=== PATIENT | female | born 1935 | race Caucasian/White ===

== ENCOUNTER 2019-04-22 12:34 | Inpatient (IN) | payer MEDICARE ==
[~2019-04-22] VITALS: Ht 167.6 cm; Wt 63.6 kg
[~2019-04-22 12:34] MED LIST: ASPI81CH PO; CALCIUM WITH V1 EACH PO; CARV3.125 PO; CARV6.25 PO; FLUZONE HI IM; FOLGARD TABLET1 EACH PO; FOSI10 PO; HYDACE5 PO; LEVO750 PO; LISI5 PO; LORA1 PO; LOSHYD PO; MELO7.5 PO; METR500 PO; NAPR550 PO; PROBIOTIC1 EAC1 PO; RXHYDACE PO; RXNAPNA550 PO; TRAM50 PO; Vibramycin100 MG PO; [UNRECOGNIZED DRUG - OTHER] TOP
[2019-04-22 13:09] LABS: BASOPHILS ABSOLUTE AUTO 0.07 K/mm3 (0.00-0.23); BASOPHILS PERCENT AUTO 1 % (0-2); EOSINOPHILS PERCENT AUTO 1 % (0-6); Hematocrit 25.7 % (33.0-51.0); IMMATURE GRAN ABSOLUTE AUTO 0.14 K/mm3 (0.00-0.10); IMMATURE GRAN PERCENT AUTO 1 % (0-1); LYMPHOCYTES ABSOLUTE AUTO 1.29 K/mm3 (0.84-5.20); LYMPHOCYTES PERCENT AUTO 10 % (21-46); MONOCYTES ABSOLUTE AUTO 1.08 K/mm3 (0.16-1.47); MONOCYTES PERCENT AUTO 8 % (4-13); Mean Corpuscular HGB 31.7 pg (26.0-34.0); Mean Corpuscular HGB Conc 31.1 g/dL (31.5-36.5); Mean Corpuscular Volume 102 fL (80-100); Mean Platelet Volume 10.1 fL (9.1-12.4); NEUTROPHILS ABSOLUTE AUTO 10.82 K/mm3 (1.96-9.15); NEUTROPHILS PERCENT AUTO 80 % (41-73); Platelet Count 300 K/mm3 (150-400); RDW Coefficient Variation 13.6 % (11.7-14.2); RDW Standard Deviation 49.1 fL (35.1-46.3); Red Blood Cell Count 2.52 M/mm3 (3.80-5.20)
[2019-04-22] MEDS ORDERED: LISI20 PO (13:10)
[2019-04-22] MEDS ORDERED: ATOR10 PO (13:10)
[2019-04-22] MEDS ORDERED: Tab-A-Vite1 EACH PO (13:10)
[2019-04-22] MEDS ORDERED: ELIQUIS2.5 MG PO (13:11)
[2019-04-22] MEDS ORDERED: METO50ER PO (13:11)
[2019-04-22] MEDS ORDERED: ALEN70 PO (13:11)
[2019-04-22] MEDS ORDERED: Dilt-Xr120 MG PO (13:12)
[2019-04-22] MEDS ORDERED: VITAMIN D310 MC2 PO (13:13)
[2019-04-22 13:20] LABS: International Normalized Ratio 1.14; Prothrombin Time Results 11.9 Sec (9.7-11.5)
[2019-04-22 13:28] LABS: Albumin, Blood 2.9 g/dL (3.4-5.0); Bilirubin, Total 0.5 mg/dL (0.1-1.0); Bun/Creatinine Ratio 41.6 (12.0-20.0); Calcium, Blood 8.5 mg/dL (8.5-10.1); Creatinine, Blood 1.73 mg/dL (0.40-1.00); Globulin, Blood 2.8 g/dL (2.2-4.0); Total Protein, Blood 5.7 g/dL (6.4-8.2)
[2019-04-22] MEDS ORDERED: Naproxen375 MG PO (14:46)
[2019-04-22] MEDS ORDERED: DONEPEZIL HCL5 M2 PO (14:48)
--- NOTE | 2019-04-22 16:53 | NUR ---
1535 PT ARRIVED FROM ER A&OX4 IN A-FIB W/ RVR RATE 110'S-120'S. BP'S STARTED TO DECREASE DOWN SYSTOLICALLY IN THE 70'S. 1ST UNIT OF PRBC'S WAS INFUSING, RATE INCREASED TO ASSIST WITH BP. 1630 BP'S IMPROVING, 2ND UNIT PRBC INIATED. ENDO TEAM AT BEDSIDE FOR SCOPE.
[2019-04-22 18:55] LABS: Base Excess Venous -1.2 mmol/L; Bicarbonate Venous 22.3 mmol/L (24.0-30.0); Hematocrit 32.7 % (33.0-51.0); Hemoglobin 10.5 g/dL (11.5-16.0); PCO2 Venous 45.5 mmHg (38-42); PO2 Venous 21.9 mmHg (38-42); pH Blood Venous 7.34 (7.34-7.37)
--- NOTE | 2019-04-22 19:15 | NUR ---
ASSUMED CARE OF PT AT 1915. Ax0, VITAL WNL, DENIES PAIN. PROTONIX AND NS RUNNING. H&H 10.5/32.7, LACTIC 1.6. [facility] WNL, NOTIFIED, WILL COLLECT H&H AT 2300. MONITOR BP.
--- NOTE | 2019-04-22 19:47 | NUR ---
SHIFT SUMMARY AFTER COMPLETION OF ENDOSCOPY, PT'S BP STARTED TO DROP AGAIN. DR MARX ORDERED AN ADDITIONAL LR BOLUS AND REQUESTED TO HAVE PRINT DESIGNER CONSULT ON PT. PT COMPLETED BETWEEN ER AND SHIFT END 2 UNITS PRBC AND 4L IVF. PT'S BP WAS RESPONSIVE TO FLUIDS. LABS WERE ORDERED FOR FOLLOW UP AND SPARKER AND PATCHER WOULD PROVIDE MD WITH RESULTS ONCE POSTED. PT INITIALLY ARRIVED TO UNIT IN A-FIB RVR WITH RATES 120'S, AFTER THE BLOOD AND IVF PT'S RATE IMPROVED TO THE 80'S. PROVIDED DETAILED REPORT TO ONCOMING RN.
[2019-04-22 20:09] LABS: Source, Urine Catheter
[2019-04-22 20:12] LABS: Bilirubin, Urine Neg (Neg); Blood, Urine 5+ (Neg); Glucose Qualitative, Urine Neg (Neg); Ketones, Urine 1+ (Neg); Leukocyte Esterase, Urine 3+ (Neg); Nitrite, Urine Neg (Neg); Protein, Urine Neg (Neg); Urobilinogen, Urine NORM (Normal)
[2019-04-22 20:18] LABS: Appearance, Urine Hazy (Clear); Color, Urine Pale Yellow (P-Yellow)
[2019-04-22 20:19] LABS: White Blood Cells, Urine 25-50 /hpf (0-5)
[2019-04-22 20:20] LABS: Amorphous Light (0-Heavy); Bacteria Mod /hpf; Hyaline Casts 0-2 /lpf (0-2); Squamous Epithelial Cells Mod /hpf (Few)
[2019-04-22 23:11] LABS: Hematocrit 30.3 % (33.0-51.0)
[2019-04-23 05:20] LABS: BASOPHILS ABSOLUTE AUTO 0.06 K/mm3 (0.00-0.23); BASOPHILS PERCENT AUTO 1 % (0-2); EOSINOPHILS PERCENT AUTO 2 % (0-6); IMMATURE GRAN ABSOLUTE AUTO 0.11 K/mm3 (0.00-0.10); IMMATURE GRAN PERCENT AUTO 1 % (0-1); LYMPHOCYTES ABSOLUTE AUTO 1.99 K/mm3 (0.84-5.20); LYMPHOCYTES PERCENT AUTO 19 % (21-46); MONOCYTES ABSOLUTE AUTO 1.25 K/mm3 (0.16-1.47); MONOCYTES PERCENT AUTO 12 % (4-13); Mean Corpuscular HGB 31.3 pg (26.0-34.0); Mean Corpuscular HGB Conc 33.3 g/dL (31.5-36.5); Mean Platelet Volume 9.7 fL (9.1-12.4); NEUTROPHILS ABSOLUTE AUTO 6.98 K/mm3 (1.96-9.15); NEUTROPHILS PERCENT AUTO 66 % (41-73); Platelet Count 209 K/mm3 (150-400); RDW Coefficient Variation 15.6 % (11.7-14.2); RDW Standard Deviation 52.5 fL (35.1-46.3); Red Blood Cell Count 2.88 M/mm3 (3.80-5.20); White Blood Cell Count 10.59 K/mm3 (4.00-11.30)
[2019-04-23 05:21] LABS: Mean Corpuscular Volume 94 fL (80-100)
[2019-04-23 05:42] LABS: Albumin, Blood 2.3 g/dL (3.4-5.0); Bilirubin, Total 0.9 mg/dL (0.1-1.0); Bun/Creatinine Ratio 40.7 (12.0-20.0); Calcium, Blood 7.7 mg/dL (8.5-10.1); Creatinine, Blood 1.35 mg/dL (0.40-1.00); Globulin, Blood 2.2 g/dL (2.2-4.0); Potassium, Blood 4.4 mmol/L (3.5-5.5); Total Protein, Blood 4.5 g/dL (6.4-8.2)
--- NOTE | 2019-04-23 06:06 | NUR ---
PT ALERT AND ORIENTATED, BLOOD PRESSURE WNL FOR WHOLE SHIFT. HEART RATE IN 50S-70S, DENIES PAIN. NO BLOODY BOWEL MOVEMENTS. ABLE TO VOID PER BEDPAN, ON ROOM AIR. ABLE TO HELP TURN AND REPOSTION. LABS: HGB-9.0 HCT-27.0 DRAWN AT 0500. NO ACUTE EVNTS OVERNIGHT WILL CONTINUE TO MONITOR
--- NOTE | 2019-04-23 07:30 | NUR ---
ASSUMED CARE PT ALERT AND ORIENTED TO LOCATION THIS AM. VSS REMAIN STABLE. PT DENIES ANY PAIN. NO N/V. PT UP WITH STAND BY ASSIST TO BEDSIDE COMMODE THIS AM TO VOID. DENIES DIZZINESS WITH TRANSFER. REMAINS ON PROTONIX GTT. CALL LIGHT IN REACH, PT REMINDED TO CALL PRIOR TO GETTING OOB FOR SAFETY, BED IN LOW POSITION.
[2019-04-23 09:32] LABS: Hematocrit 28.1 % (33.0-51.0); Hemoglobin 9.3 g/dL (11.5-16.0)
--- NOTE | 2019-04-23 11:46 | NUR ---
DR. MARX IN TO SEE PT REQUESTED PT REMAIN ICU STATUS FOR 1 MORE DAY FOR CLOSER OBSERVATION.
--- NOTE | 2019-04-23 17:09 | NUR ---
SHIFT SUMMARY PT. REMAINS ALERT T/O DAY, SLEEPING ON AND OFF. PT UP TO BEDSIDE COMMODE TO VOID, NO STOOL THIS SHIFT. PT. DENIES ANY N/V OR ABD PAIN T/O SHIFT. DENIES DIZZINESS WITH TRANSFERS. PT. AFEBRILE. REMAINS ON PROTONIX GTT. PLANS FOR STATUS CHANGE TOMORROW. VSS, REPORT TO ONCOMING RN
--- NOTE | 2019-04-23 19:15 | NUR ---
ASSUMED CARE OF PT AT 1915, VITAL WNL, DENIES PAIN, ON FULL LIQUID DIET, NO PULSE OX MONITOR, SPOT CHECK SAT AT 95%. H&H DUE AT 2099.
[2019-04-23 21:19] LABS: Hematocrit 30.6 % (33.0-51.0); Hemoglobin 10.2 g/dL (11.5-16.0)
--- NOTE | 2019-04-24 00:13 | NUR ---
PT RESTARTED ON HOME MEDICATIONS TO CONTROL HEART RATE.
--- NOTE | 2019-04-24 00:37 | NUR ---
PT TRANSFERED TO RM 308. PTIS ALERT AND ORIENTATED, DENIES PAIN OR SOB, HEART IN 120S, TOPROL XL 50MG GIVEN PRIOR TO TRANSFER. H&H AT 2100 TRENDING UP. AM LABS PENDING. NO ACUTE EVENTS BEFORE OR DURING TRANSFER.
--- NOTE | 2019-04-24 01:25 | NUR ---
ICU 09 TRANSFER. REPORT TAKEN FROM AMY AMAYA. FOUR PERSON TRANSFER FROM [facility] TO BED. ON ROOM AIR AND TELEMETRY. PCU CHARGE KRISTEN REPORTS A-FIB 120. IV PROTONIX INFUSING AT 10 mL/HR FROM ICU. DENIES PAIN, SOB, AND N/V. PATIENT ORIENTED TO ROOM AND CALL LIGHT SYSTEM. [place]. REPORTS SHE WOULD LIKE TO GET SOME SLEEP. CALL LIGHT IN REACH. WILL CONTINUE TO MONITOR.
--- NOTE | 2019-04-24 04:39 | NUR ---
SHIFT SUMMARY PATIENT HAD NO ACUTE CHANGES OBSERVED. AXO X 3 AND ONE ASSIST. PIV REMAINS INTACT. IV PROTONIX INFUSING AT 10 mL/HR. SHELTER CASE MANAGER REPORTED A-FIB 120 ON TRANSFER FROM ICU AND NOW A-FIB 107. DENIES PAIN, SOB, AND N/V. BP WNL/AFEBRILE. ROOM AIR. COOPERATIVE WITH CARE. CALL LIGHT IN REACH. BED IN LOWEST POSITION. WILL CONTINUE TO MONITOR UNTIL DAY SHIFT NURSE ASSUMES CARE.
[2019-04-24 04:41] LABS: BASOPHILS ABSOLUTE AUTO 0.07 K/mm3 (0.00-0.23); BASOPHILS PERCENT AUTO 1 % (0-2); EOSINOPHILS ABSOLUTE AUTO 0.37 K/mm3 (0.00-0.68); EOSINOPHILS PERCENT AUTO 4 % (0-6); Hematocrit 31.2 % (33.0-51.0); Hemoglobin 10.1 g/dL (11.5-16.0); IMMATURE GRAN ABSOLUTE AUTO 0.08 K/mm3 (0.00-0.10); IMMATURE GRAN PERCENT AUTO 1 % (0-1); LYMPHOCYTES ABSOLUTE AUTO 2.16 K/mm3 (0.84-5.20); LYMPHOCYTES PERCENT AUTO 23 % (21-46); MONOCYTES ABSOLUTE AUTO 1.06 K/mm3 (0.16-1.47); MONOCYTES PERCENT AUTO 11 % (4-13); Mean Corpuscular HGB 31.1 pg (26.0-34.0); Mean Corpuscular HGB Conc 32.4 g/dL (31.5-36.5); Mean Corpuscular Volume 96 fL (80-100); Mean Platelet Volume 9.8 fL (9.1-12.4); NEUTROPHILS ABSOLUTE AUTO 5.73 K/mm3 (1.96-9.15); NEUTROPHILS PERCENT AUTO 61 % (41-73); Platelet Count 239 K/mm3 (150-400); RDW Coefficient Variation 15.9 % (11.7-14.2); RDW Standard Deviation 54.9 fL (35.1-46.3); Red Blood Cell Count 3.25 M/mm3 (3.80-5.20); White Blood Cell Count 9.47 K/mm3 (4.00-11.30)
--- NOTE | 2019-04-24 07:54 | NUR ---
telemetry notification PCU MANAGER OF BROADCAST CONTENT CONTACTED LN TO ADVISE OF CONVERSION TO SINUS RHYTHM AT APPROX 73 BPM.
--- NOTE | 2019-04-24 10:33 | NUR ---
04/24/19 1033 Gail Byers CORRECTION TO PROCEDURE FOR PURPOSES OF VERIFICATION.
--- NOTE | 2019-04-24 17:44 | NUR ---
Initial spiritual care note: Mrs. Norwood is a pleasant lady who tells me she feels better and is hoping to go home soon. She lives alone but has "great neighbors." She denied fears/concerns. She allowed me to pray for her. Care Director services will remain available.
--- NOTE | 2019-04-24 18:34 | NUR ---
SHIFT SUMMARY PATIENT A/O. PATIENT ON PROTONIX DRIP THROUGHOUT ENTIRETY OF SHIFT. PATIENT MAKES NEEDS KNOWN. AMBULATES TO BATHROOM WITH FWW WITH ASSISTANCE. CALLS APPROPRIATELY. VITAL SIGNS APPEAR STABLE THROUGHOUT SHIFT AND TREND OF H/H IN DESIRED DIRECTION. PROVIDER INCREASE DIET TO REGULAR DIET AND PATIENT ABLE TO TOLERATE FOODS WITHOUT ISSUE. LN TO CONTINUE TO MONITOR.
--- NOTE | 2019-04-24 21:20 | NUR ---
HELD PO TOPROL XL 50 MG PER PER PARAMETERS. HOLD IF SBP <100. BP 94/68.
--- NOTE | 2019-04-24 22:01 | NUR ---
PATIENT RESTING READING. TECH REPORTS A-FIB 77. IV PROTONIX INFUSING AT 10 mL/HR. WILL CONTINUE TO MONITOR.
--- NOTE | 2019-04-25 03:17 | NUR ---
SHIFT SUMMARY PATIENT HAD NO ACUTE CHANGES OBSERVED. AXOX 3 AND ONE ASSIST TO BSC. PIV REMAINS INTACT. IV PROTONIX INFUSING AT 10 mL/HR. LOCAL OPERATOR REPORTS A-FIB 77. 1ST BP 94/68 AND PO TOPROL HELD WITH PARAMETERS TO HOLD SBP <100. DENIES PAIN, SOB, AND N/V. AFBERILE. READING FIRST HALF OF SHIFT AND ABLE TO SLEEP THE REST. COOPERATIVE WITH CARE. CALL LIGHT IN REACH. BED IN LOWEST POSITION. WILL CONTINUE TO MONITOR UNTIL DAY SHIFT NURSE ASSUMES CARE.
--- NOTE | 2019-04-25 06:37 | NUR ---
PRICING COORDINATOR REPORTS FIVE BEAT RUN OF V-TACH AT 122. PATIENT HAS BEEN AFIB 77. ASYMPTOMATIC. RESTING WITH IV PROTONIX INFUSING. CALL LIGHT IN REACH.
[2019-04-25] MEDS ORDERED: PANT40 PO (07:47)
== END 2019-04-25 11:03 | disposition home or self-care (01) | DRG 377 ==
LOC: ER 12:34 → ICUW 14:45 → MEDS 14:45 → ICUW 15:36 → MEDS 04-24 00:53
PROVIDERS: Emergency Medicine; Hospitalist; Internal Medicine Gastroenterology; Internal Medicine Pulmonary Disease; Nurse Practitioner Acute Care; ADMIT Internal Medicine
PROC: 0W3P8ZZ Control Bleeding in Gastrointestinal Tract, Via Natural or Artificial Opening Endoscopic (ICD-10-PCS; principal; 2019-04-22 16:45)
PROC: 30283B1 Transfusion of Nonautologous 4-Factor Prothrombin Complex Concentrate into Vein, Percutaneous Approach (ICD-10-PCS; 2019-04-22 16:45)
DX: K26.4 Chronic or unspecified duodenal ulcer with hemorrhage (principal); R57.8 Other shock; D62 Acute posthemorrhagic anemia; N17.9 Acute kidney failure, unspecified; M19.90 Unspecified osteoarthritis, unspecified site; Z96.612 Presence of left artificial shoulder joint; I48.91 Unspecified atrial fibrillation; Z90.13 Acquired absence of bilateral breasts and nipples; Z98.82 Breast implant status; Z66 Do not resuscitate; N18.3 Chronic kidney disease, stage 3 (moderate)
CPT/HCPCS: 36415; 36430; 71045; 74018; 80053; 81001; 82272; 82803; 83605; 85014; 85018; 85025; 85610; 85730; 86850; 86900; 86901; 86923; 87077; 87086; 87186; 93005; 93010; 96365; 96376; 99285-25; C9113; C9132; J2704; J2765; J7030; J7120; P9016

== ENCOUNTER 2019-04-30 17:02 | Emergency (ER) | payer MEDICARE ==
[~2019-04-30] VITALS: Ht 167.6 cm; Wt 59.0 kg
[~2019-04-30 17:02] MED LIST changes: +ALEN70 PO; +ATOR10 PO; +DONEPEZIL HCL5 M2 PO; +Dilt-Xr120 MG PO; +ELIQUIS2.5 MG PO; +LISI20 PO; +METO50ER PO; +Naproxen375 MG PO; +PANT40 PO; +Tab-A-Vite1 EACH PO; +VITAMIN D310 MC2 PO
[2019-04-30 18:41] LABS: BASOPHILS ABSOLUTE AUTO 0.08 K/mm3 (0.00-0.23); BASOPHILS PERCENT AUTO 1 % (0-2); EOSINOPHILS ABSOLUTE AUTO 0.16 K/mm3 (0.00-0.68); EOSINOPHILS PERCENT AUTO 2 % (0-6); Hematocrit 32.7 % (33.0-51.0); Hemoglobin 10.2 g/dL (11.5-16.0); IMMATURE GRAN ABSOLUTE AUTO 0.06 K/mm3 (0.00-0.10); IMMATURE GRAN PERCENT AUTO 1 % (0-1); LYMPHOCYTES ABSOLUTE AUTO 1.92 K/mm3 (0.84-5.20); LYMPHOCYTES PERCENT AUTO 26 % (21-46); MONOCYTES ABSOLUTE AUTO 1.24 K/mm3 (0.16-1.47); MONOCYTES PERCENT AUTO 17 % (4-13); Mean Corpuscular HGB 31.4 pg (26.0-34.0); Mean Corpuscular HGB Conc 31.2 g/dL (31.5-36.5); Mean Platelet Volume 9.8 fL (9.1-12.4); NEUTROPHILS ABSOLUTE AUTO 3.94 K/mm3 (1.96-9.15); NEUTROPHILS PERCENT AUTO 53 % (41-73); Platelet Count 347 K/mm3 (150-400); RDW Coefficient Variation 14.7 % (11.7-14.2); RDW Standard Deviation 54.3 fL (35.1-46.3); Red Blood Cell Count 3.25 M/mm3 (3.80-5.20)
[2019-04-30 18:42] LABS: Mean Corpuscular Volume 101 fL (80-100)
[2019-04-30 19:08] LABS: Albumin, Blood 2.8 g/dL (3.4-5.0); Albumin/Globulin Ratio 0.9 (0.8-1.8); Bilirubin, Total 0.2 mg/dL (0.1-1.0); Bun/Creatinine Ratio 13.7 (12.0-20.0); Calcium, Blood 8.1 mg/dL (8.5-10.1); Creatinine, Blood 1.46 mg/dL (0.40-1.00); Potassium, Blood 4.3 mmol/L (3.5-5.5); Total Protein, Blood 5.8 g/dL (6.4-8.2)
[2019-04-30] MEDS ORDERED: ELIQUIS2.5 M1 PO (19:55)
[2019-04-30] MEDS ORDERED: Naproxen375 MG PO (19:55)
[2019-04-30 21:11] LABS: BASOPHILS ABSOLUTE AUTO 0.07 K/mm3 (0.00-0.23); BASOPHILS PERCENT AUTO 1 % (0-2); EOSINOPHILS ABSOLUTE AUTO 0.17 K/mm3 (0.00-0.68); EOSINOPHILS PERCENT AUTO 2 % (0-6); Hematocrit 33.5 % (33.0-51.0); Hemoglobin 10.6 g/dL (11.5-16.0); IMMATURE GRAN ABSOLUTE AUTO 0.03 K/mm3 (0.00-0.10); IMMATURE GRAN PERCENT AUTO 0 % (0-1); LYMPHOCYTES PERCENT AUTO 27 % (21-46); MONOCYTES ABSOLUTE AUTO 1.21 K/mm3 (0.16-1.47); MONOCYTES PERCENT AUTO 14 % (4-13); Mean Corpuscular HGB 31.5 pg (26.0-34.0); Mean Corpuscular HGB Conc 31.6 g/dL (31.5-36.5); Mean Corpuscular Volume 100 fL (80-100); Mean Platelet Volume 9.8 fL (9.1-12.4); NEUTROPHILS ABSOLUTE AUTO 4.66 K/mm3 (1.96-9.15); NEUTROPHILS PERCENT AUTO 55 % (41-73); Platelet Count 350 K/mm3 (150-400); RDW Coefficient Variation 14.9 % (11.7-14.2); RDW Standard Deviation 54.3 fL (35.1-46.3); Red Blood Cell Count 3.36 M/mm3 (3.80-5.20); White Blood Cell Count 8.44 K/mm3 (4.00-11.30)
== END 2019-04-30 21:35 | disposition home or self-care (01) ==
LOC: ER 17:02
PROVIDERS: Emergency Medicine; Hospitalist
DX: K92.2 Gastrointestinal hemorrhage, unspecified (principal); I48.91 Unspecified atrial fibrillation; Z86.73 Personal history of transient ischemic attack (TIA), and cerebral infarction without residual deficits; I10 Essential (primary) hypertension
CPT/HCPCS: 36415; 80053; 82272; 85025; 86850; 86900; 86901; 93005; 93010; 96374; 99284-25; C9113

== ENCOUNTER 2019-06-06 07:28 | Day surgery (SDC) | payer MEDICARE ==
[~2019-06-06] VITALS: Ht 167.6 cm; Wt 61.4 kg
[~2019-06-06 07:28] MED LIST changes: +ELIQUIS2.5 M1 PO
--- NOTE | 2019-06-06 09:19 | NUR ---
06/06/19 0919 Pily Kumar COLONOSCOPY FIRST, THEN HEM.
--- NOTE | 2019-06-06 11:25 | NUR ---
06/06/19 1125 JEROMY LEGER RECTAL FOAM DRESSING AND SEVERAL LARGE BLOOD CLOTS NOTED IN PAD WHEN STANDING PATIENT AT BEDSIDE. TOWEL PLACED. ATTEMPTED TO PLACE NEW ATTENDS AND ZIA PAD AND PATIENT AGAIN EVACUATED SEVERAL MORE LARGE CLOTS AND AAKASH, BRIGHT RED BLOOD. ATTENDS AND PAD PLACED AFTER CLEANING PATIENT. DR. GAYTAN NOTIFIED WITH NO NEW ORDERS.
== END 2019-06-06 11:15 | disposition home or self-care (01) ==
LOC: ORSCSDS 07:28
PROVIDERS: Surgery
PROC: 0DJD8ZZ Inspection of Lower Intestinal Tract, Via Natural or Artificial Opening Endoscopic (ICD-10-PCS; principal; 2019-06-06 09:00)
PROC: 06BY0ZC Excision of Hemorrhoidal Plexus, Open Approach (ICD-10-PCS; principal; 2019-06-06 09:00)
DX: K64.3 Fourth degree hemorrhoids (principal); K62.5 Hemorrhage of anus and rectum; I10 Essential (primary) hypertension; K21.9 Gastro-esophageal reflux disease without esophagitis; Z86.73 Personal history of transient ischemic attack (TIA), and cerebral infarction without residual deficits; Z87.891 Personal history of nicotine dependence; Z79.899 Other long term (current) drug therapy
CPT/HCPCS: 88304; J1100; J1885; J2250; J2405; J2704; J3010; J7120

== ENCOUNTER 2020-08-14 08:03 | Emergency (ER) | payer OTHER ==
[~2020-08-14] VITALS: Ht 167.6 cm; Wt 63.5 kg
[2020-08-14 08:46] LABS: BASOPHILS PERCENT AUTO 1 % (0-2); EOSINOPHILS ABSOLUTE AUTO 0.16 K/mm3 (0.00-0.68); EOSINOPHILS PERCENT AUTO 2 % (0-6); Hematocrit 38.5 % (33.0-51.0); Hemoglobin 12.4 g/dL (11.5-16.0); IMMATURE GRAN ABSOLUTE AUTO 0.03 K/mm3 (0.00-0.10); IMMATURE GRAN PERCENT AUTO 0 % (0-1); LYMPHOCYTES ABSOLUTE AUTO 1.78 K/mm3 (0.84-5.20); LYMPHOCYTES PERCENT AUTO 18 % (21-46); MONOCYTES ABSOLUTE AUTO 1.01 K/mm3 (0.16-1.47); MONOCYTES PERCENT AUTO 10 % (4-13); Mean Corpuscular HGB 30.5 pg (26.0-34.0); Mean Corpuscular HGB Conc 32.2 g/dL (31.5-36.5); Mean Corpuscular Volume 95 fL (80-100); Mean Platelet Volume 9.8 fL (9.1-12.4); NEUTROPHILS ABSOLUTE AUTO 6.67 K/mm3 (1.96-9.15); NEUTROPHILS PERCENT AUTO 68 % (41-73); Platelet Count 288 K/mm3 (150-400); Red Blood Cell Count 4.06 M/mm3 (3.80-5.20); White Blood Cell Count 9.75 K/mm3 (4.00-11.30)
[2020-08-14 09:09] LABS: Alanine Aminotransfer (ALT/SGP 21 U/L (12-78); Albumin, Blood 3.3 g/dL (3.4-5.0); Alk Phos 73 U/L (50-136); Anion Gap 4 mmol/L (6-16); Aspartate Aminotrans (AST/SGOT 19 U/L (12-37); Bilirubin, Total 0.3 mg/dL (0.1-1.0); Blood Urea Nitrogen 22 mg/dL (8-24); Bun/Creatinine Ratio 15.2 (12.0-20.0); CO2, Blood 26 mmol/L (21-32); Calcium, Blood 8.8 mg/dL (8.5-10.1); Chloride, Blood 107 mmol/L (98-108); Creatinine, Blood 1.45 mg/dL (0.40-1.00); Globulin, Blood 3.2 g/dL (2.2-4.0); Glomerular Filtration Rate 36 (60-); Glucose, Blood 136 mg/dL (70-99); Sodium, Blood 137 mmol/L (136-145); Total Protein, Blood 6.5 g/dL (6.4-8.2); Troponin I <0.015 ng/mL (0.000-0.040)
[2020-08-14 10:15] LABS: Source, Urine Clean Catch
[2020-08-14 10:20] LABS: Bilirubin, Urine Neg (Neg); Blood, Urine Neg (Neg); Glucose Qualitative, Urine Neg (Neg); Ketones, Urine Neg (Neg); Leukocyte Esterase, Urine Neg (Neg); Nitrite, Urine Neg (Neg); Protein, Urine Neg (Neg); Urobilinogen, Urine NORM (Normal)
[2020-08-14 10:27] LABS: Appearance, Urine Clear (Clear); Color, Urine Yellow (P-Yellow)
[2020-08-14] MEDS ORDERED: ELIQUIS2.5 MG PO (10:59)
[2020-08-14] MEDS ORDERED: OXYB5 PO (10:59)
[2020-08-14] MEDS ORDERED: LANOXIN125 MCG PO (11:00)
[2020-08-14] MEDS ORDERED: DONEPEZIL HCL10 MG (11:00)
== END 2020-08-14 11:12 | disposition home or self-care (01) ==
LOC: ER 08:03
PROVIDERS: Physician Assistant
DX: E86.1 Hypovolemia (principal); I10 Essential (primary) hypertension; Z79.899 Other long term (current) drug therapy; Z79.01 Long term (current) use of anticoagulants; Z87.891 Personal history of nicotine dependence
CPT/HCPCS: 51701; 71045; 80053; 81003; 84484; 85025; 93005; 93010; 99284-25

== ENCOUNTER 2021-09-12 10:15 | Observation (INO) | payer OTHER ==
[~2021-09-12] VITALS: Ht 167.6 cm; Wt 67.4 kg
[~2021-09-12 10:15] MED LIST changes: +DONEPEZIL HCL10 MG PO; +LANOXIN125 MCG PO; +OXYB5 PO
[2021-09-12 11:17] LABS: BASOPHILS ABSOLUTE AUTO 0.09 K/mm3 (0.00-0.23); BASOPHILS PERCENT AUTO 1 % (0-2); EOSINOPHILS ABSOLUTE AUTO 0.02 K/mm3 (0.00-0.68); EOSINOPHILS PERCENT AUTO 0 % (0-6); Hematocrit 46.1 % (33.0-51.0); Hemoglobin 14.8 g/dL (11.5-16.0); IMMATURE GRAN ABSOLUTE AUTO 0.05 K/mm3 (0.00-0.10); IMMATURE GRAN PERCENT AUTO 1 % (0-1); LYMPHOCYTES ABSOLUTE AUTO 2.07 K/mm3 (0.84-5.20); LYMPHOCYTES PERCENT AUTO 19 % (21-46); MONOCYTES ABSOLUTE AUTO 1.24 K/mm3 (0.16-1.47); MONOCYTES PERCENT AUTO 11 % (4-13); Mean Corpuscular HGB 30.7 pg (26.0-34.0); Mean Corpuscular HGB Conc 32.1 g/dL (31.5-36.5); Mean Corpuscular Volume 96 fL (80-100); Mean Platelet Volume 9.6 fL (9.1-12.4); NEUTROPHILS PERCENT AUTO 69 % (41-73); Platelet Count 387 K/mm3 (150-400); RDW Coefficient Variation 12.3 % (11.7-14.2); Red Blood Cell Count 4.82 M/mm3 (3.80-5.20); White Blood Cell Count 11.07 K/mm3 (4.00-11.30)
[2021-09-12 11:33] LABS: Albumin, Blood 3.6 g/dL (3.4-5.0); Albumin/Globulin Ratio 1.1 (0.8-1.8); Bilirubin, Total 0.5 mg/dL (0.1-1.0); Bun/Creatinine Ratio 18.2 (12.0-20.0); Calcium, Blood 9.2 mg/dL (8.5-10.1); Creatinine, Blood 2.09 mg/dL (0.40-1.00); Globulin, Blood 3.3 g/dL (2.2-4.0); Potassium, Blood 5.1 mmol/L (3.5-5.5); Total Protein, Blood 6.9 g/dL (6.4-8.2)
[2021-09-12 12:04] LABS: Digoxin (Lanoxin) 4.19 ug/mL (0.80-2.00)
[2021-09-12 13:15] LABS: Appearance, Urine Clear (Clear); Bilirubin, Urine Neg (Neg); Blood, Urine Neg (Neg); Color, Urine Yellow (P-Yellow); Glucose Qualitative, Urine Neg (Neg); Ketones, Urine 1+ (Neg); Leukocyte Esterase, Urine Neg (Neg); Nitrite, Urine Neg (Neg); Protein, Urine Neg (Neg); Specific Gravity, Urine 1.015 (1.003-1.022); Urobilinogen, Urine NORM (Normal)
[2021-09-12] MEDS ORDERED: DIGOX250 MCG PO (13:27)
[2021-09-12] MEDS ORDERED: PANTOPRAZOLE SO40 M2 PO (16:03)
[2021-09-12] MEDS ORDERED: OXYB5 PO (16:04)
--- NOTE | 2021-09-12 18:06 | NUR ---
ADMISSION/SHIFT SUMMARY: PT IS NEW ADMIT TODAY, ARRIVING FROM ED AT 1538. PT ARRIVES A&O, ANSWERING QUESTIONS AND COOPERATING WITH CARE. PT IS NATIVE IN L EAR, HER HEARING AID IS AT HOME. PT MAINTAINING O2 SATS >92% ON RA, DENIES SOB. UPON ARRIVAL PT FOUND TO BE IN AFIB, CONVERTED TO AFLUTTER AT 1554, THEN CONVERTED TO SINUS RHYTHM AT 1603 WHERE SHE CONTINUES AT A RATE IN 60s. PT DENIES CP OR FEELING OF PALPITATIONS. PT RECEIVED DIGIFAB IN ED, CURRENTLY RECEIVING NS INFUSION PER ORDERS. ABDOMEN TENDER TO PALPATION, DENIES N/V/D. GUEVARA CATHETER PLACED IN ED, DRAINING CLEAR YELLOW COLORED URINE TO GRAVITY. CURRENTLY, PT RESTING QUIETLY IN BED W/A BOOK AND MUSIC PLAYING. WILL CONTINUE TO MONITOR AND TREAT ACCORDINGLY UNTIL CHANGE OF SHIFT.
[2021-09-13 04:25] LABS: BASOPHILS ABSOLUTE AUTO 0.12 K/mm3 (0.00-0.23); BASOPHILS PERCENT AUTO 1 % (0-2); EOSINOPHILS ABSOLUTE AUTO 0.11 K/mm3 (0.00-0.68); EOSINOPHILS PERCENT AUTO 1 % (0-6); Hematocrit 36.8 % (33.0-51.0); Hemoglobin 11.7 g/dL (11.5-16.0); IMMATURE GRAN ABSOLUTE AUTO 0.03 K/mm3 (0.00-0.10); IMMATURE GRAN PERCENT AUTO 0 % (0-1); LYMPHOCYTES ABSOLUTE AUTO 2.33 K/mm3 (0.84-5.20); LYMPHOCYTES PERCENT AUTO 24 % (21-46); MONOCYTES ABSOLUTE AUTO 1.53 K/mm3 (0.16-1.47); MONOCYTES PERCENT AUTO 16 % (4-13); Mean Corpuscular HGB 30.6 pg (26.0-34.0); Mean Corpuscular HGB Conc 31.8 g/dL (31.5-36.5); Mean Corpuscular Volume 96 fL (80-100); Mean Platelet Volume 9.6 fL (9.1-12.4); NEUTROPHILS ABSOLUTE AUTO 5.67 K/mm3 (1.96-9.15); NEUTROPHILS PERCENT AUTO 58 % (41-73); Platelet Count 315 K/mm3 (150-400); RDW Coefficient Variation 12.8 % (11.7-14.2); RDW Standard Deviation 44.8 fL (35.1-46.3); Red Blood Cell Count 3.82 M/mm3 (3.80-5.20); White Blood Cell Count 9.79 K/mm3 (4.00-11.30)
[2021-09-13 04:40] LABS: Bun/Creatinine Ratio 22.7 (12.0-20.0); Creatinine, Blood 1.54 mg/dL (0.40-1.00); Magnesium, Blood 2.1 mg/dL (1.6-2.4); Potassium, Blood 4.2 mmol/L (3.5-5.5)
--- NOTE | 2021-09-13 05:38 | NUR ---
SHIFT SUMMARY ASSUMED CARE AT 1900. PT UP IN BED READING. PT ALERT AND ORIENTED, PLEASANT TO INTERACT WITH. VSS, SR W/HR IN 60'S, SOFT BLOOD PRESSURES, SEE VITAL SIGNS. O2 SATS >95% ON RA. PT DENIES N/V/D. DENIES CHEST PAIN AND PRESSURE. DENIES SOB. GUEVARA CATHETER IN PLACE AND DRAINING TO GRAVITY. EKG COMPLETED THIS AM. NO ACUTE CHANGES. BED IN LOWEST POSITION AND CALL LIGHT WITHIN REACH.
--- NOTE | 2021-09-13 06:05 | NUR ---
I have reviewed professor of nursing documentation and agree with findings.
--- NOTE | 2021-09-13 15:38 | NUR ---
Echocardiogram performed.
--- NOTE | 2021-09-13 17:30 | NUR ---
ASSUMED CARE FROM JOSE CRUZ AMAYA. PATIENT IS READY TO BE DISCHARGED UP IN THE WHEELCHAIR. PATIENT AND CAREGIVER VERBALIZE UNDERSTANDING OF DISCHARGE INSTRUCTIONS. PATIENT TO HOME VIA WC WITH CAREGIVER.
== END 2021-09-13 17:29 | disposition home or self-care (01) ==
LOC: ER 10:15 → PCU 14:50
PROVIDERS: Nurse Practitioner Acute Care; Physician Assistant; ADMIT Internal Medicine
DX: N17.9 Acute kidney failure, unspecified (principal); I12.9 Hypertensive chronic kidney disease with stage 1 through stage 4 chronic kidney disease, or unspecified chronic kidney disease; N18.30 Chronic kidney disease, stage 3 unspecified; R62.7 Adult failure to thrive; I21.A1 Myocardial infarction type 2; T46.0X5A Adverse effect of cardiac-stimulant glycosides and drugs of similar action, initial encounter; I48.0 Paroxysmal atrial fibrillation; E78.5 Hyperlipidemia, unspecified; F03.90 Unspecified dementia, unspecified severity, without behavioral disturbance, psychotic disturbance, mood disturbance, and anxiety; M81.0 Age-related osteoporosis without current pathological fracture; K21.9 Gastro-esophageal reflux disease without esophagitis; Z86.73 Personal history of transient ischemic attack (TIA), and cerebral infarction without residual deficits; Z68.22 Body mass index [BMI] 22.0-22.9, adult; Z79.01 Long term (current) use of anticoagulants; Z88.0 Allergy status to penicillin; Z88.8 Allergy status to other drugs, medicaments and biological substances; Z66 Do not resuscitate
CPT/HCPCS: 36415; 51702; 71045; 74177; 80048; 80053; 80162; 81003; 83605; 83690; 83735; 84484; 85025; 93005; 93010; 93306; 96365-59; 99285-25; A9270; G0378; J1162; J7030; Q9967

== ENCOUNTER 2021-11-12 09:35 | Inpatient (IN) | payer OTHER | END 2021-11-14 15:45 | disposition home or self-care (01) | DRG 871 | LOC: ER 09:35 → PCU 12:13 | PROVIDERS: ADMIT Internal Medicine | PROC: 5A09357 Assistance with Respiratory Ventilation, Less than 24 Consecutive Hours, Continuous Positive Airway Pressure (ICD-10-PCS; principal; 2021-11-13) | PROC: 3E0DX3Z Introduction of Anti-inflammatory into Mouth and Pharynx, External Approach (ICD-10-PCS; 2021-11-13) | DX: A41.9 Sepsis, unspecified organism (principal); J12.82 Pneumonia due to coronavirus disease 2019; U07.1 COVID-19; J96.01 Acute respiratory failure with hypoxia; E87.2 Acidosis; I48.20 Chronic atrial fibrillation, unspecified; Z66 Do not resuscitate; N18.30 Chronic kidney disease, stage 3 unspecified; I95.9 Hypotension, unspecified; G30.9 Alzheimer's disease, unspecified; M19.90 Unspecified osteoarthritis, unspecified site; K21.9 Gastro-esophageal reflux disease without esophagitis; I12.9 Hypertensive chronic kidney disease with stage 1 through stage 4 chronic kidney disease, or unspecified chronic kidney disease; Z96.612 Presence of left artificial shoulder joint; F02.80 Dementia in other diseases classified elsewhere, unspecified severity, without behavioral disturbance, psychotic disturbance, mood disturbance, and anxiety; E78.5 Hyperlipidemia, unspecified; Z78.1 Physical restraint status; Z86.73 Personal history of transient ischemic attack (TIA), and cerebral infarction without residual deficits; Z88.0 Allergy status to penicillin; Z88.8 Allergy status to other drugs, medicaments and biological substances; Z79.01 Long term (current) use of anticoagulants; Z79.899 Other long term (current) drug therapy; Z90.710 Acquired absence of both cervix and uterus; Z90.13 Acquired absence of bilateral breasts and nipples; Z90.89 Acquired absence of other organs; Z98.890 Other specified postprocedural states; Z87.891 Personal history of nicotine dependence ==

== ENCOUNTER 2023-08-24 18:54 | Emergency (ER) | payer OTHER ==
[~2023-08-24] VITALS: Ht 175.3 cm; Wt 83.9 kg
[~2023-08-24 18:54] MED LIST changes: +ATOR40TA PO; +DECADRON6 M1 PO; +DIGOX250 MCG PO; +LEVFLO500 PO; +PANTOPRAZOLE SO40 M2 PO; +Prinivil10 MG PO
[2023-08-24 19:30] VITALS: BP 150/69
[2023-08-24 20:25] LABS: Influenza A, PCR NEGATIVE (NEGATIVE); Influenza B, PCR NEGATIVE (NEGATIVE); Resp Syncytial Virus, PCR NEGATIVE (NEGATIVE); SARS-Cov-2 (COVID-19) PCR, MMC NEGATIVE (NEGATIVE)
== END 2023-08-24 22:15 | disposition home or self-care (01) ==
LOC: ER 18:54
PROVIDERS: Nurse Practitioner
DX: J06.9 Acute upper respiratory infection, unspecified (principal); I10 Essential (primary) hypertension; M19.90 Unspecified osteoarthritis, unspecified site
CPT/HCPCS: 0241U; 71046; 87430; 99283-25

== ENCOUNTER 2024-11-06 14:40 | Emergency (ER) | payer OTHER ==
[~2024-11-06] VITALS: Ht 172.7 cm; Wt 59.0 kg
[~2024-11-06 14:40] MED LIST changes: +ACET325 PO; +AMIODARONE HCL400 M2 PO; +Amiodarone HCl200 MG PO; +CEPH500 PO; +DOCUZEN 8.6-501 EACH PO; +JUVEN PACKET1 EA10 PO; +MIRALAX17 GM PO
[2024-11-06 16:45] LABS: Source, Urine Fem Cath
[2024-11-06 16:51] LABS: Bilirubin, Urine Neg (Neg); Color, Urine Yellow (P-Yellow); Glucose Qualitative, Urine Neg (Neg); Ketones, Urine Neg (Neg); Leukocyte Esterase, Urine 2+ (Neg); Protein, Urine 2+ (Neg); Specific Gravity, Urine 1.015 (1.003-1.022); Urobilinogen, Urine NORM (Normal)
[2024-11-06 17:05] LABS: BASOPHILS ABSOLUTE AUTO 0.09 K/mm3 (0.00-0.23); BASOPHILS PERCENT AUTO 1 % (0-2); EOSINOPHILS ABSOLUTE AUTO 0.03 K/mm3 (0.00-0.68); EOSINOPHILS PERCENT AUTO 0 % (0-6); Hematocrit 34.1 % (33.0-51.0); Hemoglobin 10.8 g/dL (11.5-16.0); IMMATURE GRAN ABSOLUTE AUTO 0.09 K/mm3 (0.00-0.10); IMMATURE GRAN PERCENT AUTO 1 % (0-1); LYMPHOCYTES ABSOLUTE AUTO 1.46 K/mm3 (0.84-5.20); LYMPHOCYTES PERCENT AUTO 13 % (21-46); MONOCYTES ABSOLUTE AUTO 1.35 K/mm3 (0.16-1.47); MONOCYTES PERCENT AUTO 12 % (4-13); Mean Corpuscular HGB Conc 31.7 g/dL (31.5-36.5); Mean Corpuscular Volume 92 fL (80-100); NEUTROPHILS ABSOLUTE AUTO 8.02 K/mm3 (1.96-9.15); NEUTROPHILS PERCENT AUTO 73 % (41-73); NRBC ABSOLUTE 0.00 K/mm3 (0.00-0.02); NRBC Auto 0.0 /100 WBC (0.0-0.2); Platelet Count 480 K/mm3 (150-400); RDW Coefficient Variation 14.3 % (11.7-14.2); RDW Standard Deviation 47.7 fL (35.1-46.3)
[2024-11-06 17:23] LABS: Alanine Aminotransfer (ALT/SGP 22.0 U/L (12-78); Albumin, Blood 1.7 g/dL (3.4-5.0); Albumin/Globulin Ratio 0.4 (0.8-1.8); Anion Gap 9.0 mmol/L (3-11); Aspartate Aminotrans (AST/SGOT 31.0 U/L (12-37); Bilirubin, Total 0.4 mg/dL (0.1-1.0); Blood Urea Nitrogen 18.0 mg/dL (8-24); CO2, Blood 25.0 mmol/L (21-32); Calcium, Blood 7.9 mg/dL (8.5-10.1); Chloride, Blood 102.0 mmol/L (98-108); Creatinine, Blood 0.78 mg/dL (0.40-1.00); Globulin, Blood 3.9 g/dL (2.2-4.0); Glucose, Blood 89.0 mg/dL (70-99); Potassium, Blood 4.2 mmol/L (3.5-5.5); Sodium, Blood 132.0 mmol/L (136-145); Total Protein, Blood 5.6 g/dL (6.4-8.2)
[2024-11-06 17:23] LABS: Red Blood Cells, Urine 0-2 /hpf (0-2)
[2024-11-06] MEDS ORDERED: LEVFLO500 PO (17:32)
[2024-11-06 23:38] VITALS: BP 123/51
== END 2024-11-06 23:41 | disposition home or self-care (01) ==
LOC: ER 14:40
PROVIDERS: Emergency Medicine
DX: N39.0 Urinary tract infection, site not specified (principal); I12.9 Hypertensive chronic kidney disease with stage 1 through stage 4 chronic kidney disease, or unspecified chronic kidney disease; N18.30 Chronic kidney disease, stage 3 unspecified; E78.5 Hyperlipidemia, unspecified; Z86.73 Personal history of transient ischemic attack (TIA), and cerebral infarction without residual deficits; Z87.891 Personal history of nicotine dependence; Z79.899 Other long term (current) drug therapy; Z88.0 Allergy status to penicillin; Z88.8 Allergy status to other drugs, medicaments and biological substances
CPT/HCPCS: 36415; 51701; 70450; 80053; 81001; 85025; 87086; 93005; 93010; 96365; 99285-25; J1956